=== PATIENT | female | born 1980 | race Caucasian/White ===

== ENCOUNTER 2017-10-15 06:10 | Day surgery (SDC) | payer OTHER ==
[2017-10-15] MEDS ORDERED: PERCOCET 5-3251 EACH PO (08:43)
[2017-10-15] MEDS ORDERED: POLY119PG PO (08:44)
[2017-10-15] MEDS ORDERED: SURFAK240 M1 PO (08:45)
== END 2017-10-15 16:00 | disposition home or self-care (01) ==
LOC: CIR.AMB 06:10
DX: K42.0 Umbilical hernia with obstruction, without gangrene (principal); K43.0 Incisional hernia with obstruction, without gangrene